=== PATIENT | female | born 1950 | race Caucasian/White ===

== ENCOUNTER → 2017-01-30 | Outpatient (CLI) | payer OTHER | LOC: MMPC 09:00 | PROVIDERS: ATTEND Nurse Practitioner Family | DX: Z78.0 Asymptomatic menopausal state (principal); I10 Essential (primary) hypertension; Z12.31 Encounter for screening mammogram for malignant neoplasm of breast | CPT/HCPCS: G0439; G0463 ==

== ENCOUNTER → 2017-02-02 | Outpatient (CLI) | payer OTHER ==
[2017-02-02 09:20] LABS: HEMATOCRIT 42.7 % (37.0-47.0); HEMOGLOBIN 14.4 g/dL (12.0-16.0); MEAN CORPUSCULAR HEMOGLOBIN 29.7 PG (27-31); MEAN CORPUSCULAR HGB CONC 33.7 g/dL (33-37); MEAN PLATELET VOLUME 10.7 FL (7.4-12.2); RED BLOOD COUNT 4.85 10^6/uL (4.20-5.40)
[2017-02-02 09:38] LABS: BLOOD UREA NITROGEN 17 mg/dL (7-22); BUN/CREATININE RATIO 21.25 (6-20); CALCIUM 9.6 mg/dL (8.7-10.7); CHOL/HDL RATIO 3.03 RATIO (0-4.0); EST GLOMERULAR FILTRATION > 60 (>60 ml/min/1.73m(2)); HDL CHOLESTEROL 65 mg/dL (40-150); SERUM ALBUMIN 4.2 g/dL (3.5-4.8); SERUM CHOLESTEROL 197 mg/dL (120-200)
== END ==
LOC: LAB 08:56
PROVIDERS: ATTEND Family Medicine
DX: I10 Essential (primary) hypertension (principal)
CPT/HCPCS: 36415; 80053; 80061; 84443; 85027

== ENCOUNTER → 2017-04-17 | Outpatient (CLI) | payer OTHER | LOC: MMPC 09:00 | PROVIDERS: ATTEND Family Medicine | DX: R04.0 Epistaxis (principal) | CPT/HCPCS: 99213; G0463 ==

== ENCOUNTER 2018-04-03 11:45 | Inpatient (IN) ==
--- NOTE | 2018-03-26 12:20 | CRNA.PROGR ---
Anesthesia Time - - Start date: 03/26/18 End date: 03/26/18 - Procedure/Recovery Time Anesthesia : Time In: 11:54 Anesthesia : Time Out: 12:15 Anesthesia : Total Time: 21 - Total Anesthesia Time Total Anesthesia Time (minutes): 21 - Other Weight: 87.543 kg Height: 5 ft 4 in Body Mass Index (BMI): 33.1 Physical Status: P2 Anesthesia Type: MAC (with sedation)
--- NOTE | 2018-03-26 12:21 | CRNA.PROGR ---
Post Anesthesia Phase II - Post Anesthesia Phase II Patient Stable and Discharged To: Phase II Care Assumed By Surgeon: Dewayne Covington MD Temperature: 96.6 F Pulse Rate: 94 Respiratory Rate: 18 Blood Pressure: 115/94 Pulse Ox: 94 Total [place] Score at Discharge: 10 Post Anesthesia Discharge Criteria Met: Yes
[~2018-04-03 11:45] MED LIST: BUPivacaine Liposome/PF (Exparel) Inj 20ml vial INFIL ONE; Ketorolac Inj 30 MG, Morphine Inj 5 MG, BUPivacaine Inj 0.25% PF 150 MG SPLASH ONE; LIDOCAINE W/ SODIUM BICARB 0.5 ML SYR SUBD ONE; Lactated Ringers 1,000 ML PRIMARY IV SCH; Tranexamic Acid 1,000 MG in Sodium Chloride 0.9% 100 ML IV SCH; ceFAZolin Inj 2gm (Premix) 2 GM/50 ML BAG IV ONE
[2018-06-12] MEDS ORDERED: Lactated Ringers 1,000 ML PRIMARY IV ONE ×2 (05:59→11:02)
[2018-06-12] MEDS ORDERED: LIDOCAINE W/ SODIUM BICARB 0.5 ML SYR ONE (05:59)
[2018-06-12] MEDS ORDERED: ceFAZolin Inj 2gm (Premix) 2 GM/50 ML BAG IV ONE ×2 (05:59→06:00)
[2018-06-12] MEDS ORDERED: BUPivacaine Liposome/PF (Exparel) Inj 20ml vial INFIL ONE ×2 (06:00→06:39)
[2018-06-12] MEDS ORDERED: Ketorolac Inj 30 MG, Morphine Inj 5 MG, BUPivacaine Inj 0.25% PF 150 MG SPLASH ONE ×3 (06:00)
[2018-06-12] MEDS ORDERED: Lactated Ringers 1,000 ML PRIMARY IV SCH (06:00)
[2018-06-12] MEDS ORDERED: Tranexamic Acid 3,000 MG in Sodium Chloride 0.9% 100 ML IRRIG ONE (06:00)
[2018-06-12] MEDS ORDERED: LIDOCAINE W/ SODIUM BICARB 0.5 ML SYR SUBD ONE (06:00)
[2018-06-12] MEDS ORDERED: Sodium Chloride 0.9% vial 40 ML ONE (06:38)
[2018-06-12] MEDS ORDERED: BACITRACIN 50,000 UNIT VIAL IRRIG ONE (06:39)
[2018-06-12] MEDS ORDERED: PROPOFOL 10 MG/1 ML (200 MG/20 ML) VIAL IV ONE ×2 (07:05→09:42)
[2018-06-12] MEDS ORDERED: LIDOCAINE 2%/ EPI 1:200,000 - 20 ML VIAL ONE (07:17)
[2018-06-12] MEDS ORDERED: BUPivacaine Inj 0.5% PF (5mg/ml) 30ml vial ONE (07:18)
[2018-06-12] MEDS ORDERED: MIDAZOLAM 5 MG/1 ML ONE (07:18)
[2018-06-12] MEDS ORDERED: fentaNYL Inj 100 MCG/2 ML VIAL ONE ×2 (07:18→07:42)
[2018-06-12] MEDS ORDERED: Sodium Chloride 0.9% 1,000 ML ONE (07:43)
[2018-06-12] MEDS ORDERED: Sodium Chloride 0.9% 250 ML IV ONE (07:43)
[2018-06-12] MEDS ORDERED: Tranexamic Acid 1,000 MG in Sodium Chloride 0.9% 100 ML IV SCH (08:00)
--- NOTE | 2018-06-12 08:51 | CRNA.PROCE ---
Nerve Block Documentation - - Safety Measures: Time Out Taken - - Type of Nerve Block Used: Right Adductor Canal Nerve Block Position for Nerve Block: Supine Moniters Used During Block: EKG, SPO2, NIBP Oxygen Supplemented: Yes Sedation Used - Enter Amount in Comment Field [ANES.SEDAT]: Midazolam (mg): Yes (2mg), Fentanyl (mcg): Yes (100mcg) Skin Prep Used: ChloroPrep Technique: Nerve Stimulator (and US) Nerve Block Needle Used: PaxVax 100 mm Stimulation Hz: 2 Stimulation Staring mA: 1.2 Stimulation Ending mA: 0.4 Local Anesthetic - Enter Amt in Comment Field [ANES.LOCNB]: 0.5 % Bupivacaine Plain (mL): Yes (20ml), 2 % Xylocaine with Epinephrine 1:200,000 (mL): Yes (20ml ) Additives to Nerve Blocks: Dexamethasone (mg): Yes (8mg(2ml)) - - PreOp Block : Time In: 07:20 PreOp Block : Time Out: 07:37 Anesthesia Time - Other Weight: 87.543 kg Height: 5 ft 4 in Body Mass Index (BMI): 33.1
--- NOTE | 2018-06-12 08:52 | CRNA.PROCE ---
Central Neuraxis Block [facility] - - Safety Measures: Time Out Taken - - Type of Block: Subarachnoid Reason for Block: Surgical Moniters Used During Block: EKG, SPO2, NIBP Sedation Used - Enter Amount Used in Comment Field: Midazolam (mg): Yes (1mg) Skin Prep Used: ChloroPrep Spinal Needle Used: 25 Jes 80 mm Local Anesthetic - Enter Amount Used in Comment Field: 0.75 % Bupivacaine with Dextrose (ml): Yes (15mg) Additive Used - Enter Amount Used in Comment Field: Fentanyl (mcg): Yes (15mcg) Bioclusive Dressing Applied: No Anesthesia Time - Block Time PreOp Block : Time In: 07:20 PreOp Block : Time Out: 07:37 - Other Weight: 87.543 kg Height: 5 ft 4 in Body Mass Index (BMI): 33.1
[2018-06-12] MEDS ORDERED: Lactated Ringers 2,000 ML PRIMARY IV ONE (09:42)
[2018-06-12] MEDS ORDERED: LIDOCAINE W/ SODIUM BICARB 0.5 ML SYR SUBD PRN (10:20)
[2018-06-12] MEDS ORDERED: ONDANSETRON 4 MG/2 ML VIAL IVP PRN ×2 (10:20→13:01)
[2018-06-12] MEDS ORDERED: HYDROmorphone 2 MG/1 ML IVP PRN (10:20)
[2018-06-12] MEDS ORDERED: BUTORPHANOL TARTRATE 2 MG/1 ML VIAL IVP PRN (10:20)
--- NOTE | 2018-06-12 11:53 | ORTHO.OP ---
- - -: See Dictated Operative Report Procedure Codes - Lower Extremity/Knee Procedures Primary Lower Extremity Procedure Code: 96134 : TKA (Wen Padilla assisted)
--- NOTE | 2018-06-12 12:22 | CRNA.PROGR ---
Anesthesia Time - - Start date: 06/12/18 End date: 06/12/18 - Procedure/Recovery Time Anesthesia : Time In: 08:04 Anesthesia : Time Out: 12:14 Anesthesia : Total Time: 250 - Block Time PreOp Block : Time In: 07:20 PreOp Block : Time Out: 07:37 PreOp Block : Total Time: 17 - Total Anesthesia Time Total Anesthesia Time (minutes): 267 - Other Weight: 87.543 kg Height: 5 ft 4 in Body Mass Index (BMI): 33.1 Physical Status: P2 Anesthesia Type: Spinal Block
--- NOTE | 2018-06-12 12:25 | CRNA.PROGR ---
Anesthesia Recovery Phase I - Post Anesthesia Evaluation Patient's Condition on Arrival in Phase I: Stable Patient's Condition on Arrival in Phase II: Stable Pain Level: 0
[2018-06-12] MEDS ORDERED: diphenhydrAMINE 25 MG CAPSULE PO PRN (13:01)
[2018-06-12] MEDS ORDERED: MAG HYDROX/AL HYDROX/SIMETH 30 ML SUSP PO PRN (13:01)
[2018-06-12] MEDS ORDERED: BISACODYL 5 MG TABLET PO PRN (13:01)
[2018-06-12] MEDS ORDERED: CALCIUM CARBONATE 500 MG (TUMS) CHEWABLE TABLET PO PRN (13:01)
[2018-06-12] MEDS ORDERED: Prochlorperazine Tab 10 MG TAB PO PRN (13:01)
[2018-06-12] MEDS ORDERED: LIDOCAINE HCL 2 % 10 ML JELLY URO-JECT TOPICAL PRN (13:01)
[2018-06-12] MEDS ORDERED: ACETAMINOPHEN 325 MG TABLET PO PRN (13:01)
[2018-06-12] MEDS ORDERED: BISACODYL 10 MG SUPPOSITORY RECTAL PRN (13:01)
[2018-06-12] MEDS ORDERED: Ondansetron ODT Tab 8 MG TAB PO PRN (13:01)
[2018-06-12] MEDS ORDERED: METOPROLOL SUCCINATE 25 MG SR 24H TABLET PO SCH (13:01)
[2018-06-12] MEDS ORDERED: Triamterene/HCTZ 75/50 Tab 1 TAB TAB PO SCH (13:15)
[2018-06-12] MEDS: Lactated Ringers 1,000 ML PRIMARY IV SCH (13:59)
--- NOTE | 2018-06-12 14:07 | CONSULT ---
Consult Note - Consult Consult Date: 06/12/18 Reason for Consult: PostOp Consulation : Ortho Requesting Physician: Dr. Durham Primary Care Provider: Bran Gregg MD - History of Present Illness History of Present Illness: This is a 68 years old female with medical history significant for history of hypertension, history of previous right knee surgery before who came into the hospital to have right total knee replacement and was done by Dr. Durham. The hospitalist service were consulted for management of medical issues. Currently she is sleepy and feels tired but otherwise denying other symptoms there's no chest pain no shortness of breath no nausea and no knee pain. She did not take any of her medications today. Past Medical History Medical History: 1. Hypertension. 2. Recent UTI. 3. History of arthritis right knee. 4. History of abnormal stress test, had cardiac cath in [facility] and was negative per her family. 5. History of adenomatous polyps with low-grade dysplasia in October 2014 repeat colonoscopy this year was negative Surgical History: 1. History of previous knee surgery before Family History: Reviewed an Not Pertinent Past Social History: Does not smoke, rarely drinks no drugs. Tobacco Use: Never Smoker In the Past 12 Months, Have Used or Abuse Any of the Following Substance: None Alcohol Use: Rarely Review of Systems - Review of Systems All Systems: Reviewed & No Additional Complaints Except as Stated Medication / Allergies Home Medications: Home Medications 3 Medication Instructions Recorded Confirmed Type Lo-Dose Aspirin Ec 81 mg ORAL QD tab 12/16/11 06/12/18 History Potassium Bicarbonate/Cit AC 1 tab PO QD tab 12/28/15 06/12/18 History [Potassium 25 Meq Tablet Eff] Lisinopril 1 tab PO QD #90 tab 02/08/17 [facility] 1 tab PO DAILY 11/10/17 06/12/18 History tablet amlodipine 5 mg tablet 5 mg PO DAILY #90 tab 03/13/18 06/12/18 Rx lisinopril 40 mg tablet 40 mg PO QDAY #90 tab 03/13/18 06/12/18 Rx metoprolol succinate ER 25 mg 25 mg PO QD #90 tab 03/13/18 06/12/18 Rx tablet,extended release 24 hr triamterene 37.5 1 cap PO QD #90 cap 03/13/18 06/12/18 Rx mg-hydrochlorothiazide 25 mg capsule nitrofurantoin 100 mg PO BID #14 cap 06/08/18 06/12/18 Rx monohydrate/macrocrystals 100 mg capsule Allergies/Adverse Reactions: Allergies 3 Allergy/AdvReac Type Severity Reaction Status Date / Time No Known Allergies Allergy Verified 06/12/18 13:59 Exam - Vitals Vital Signs: Vital Signs Temperature 97.4 F Pulse Rate 46 Respiratory Rate 12 Blood Pressure 78/49 Pulse Ox 86 Oxygen Flow Rate 2L by NC Height 5 ft 4 in Weight 193 lb - General General Appearance: No Acute Distress, Cooperative - Head Head Exam: Normal Inspection - Eye Eye Exam: POSITIVE: Normal Appearance - ENT ENT Exam: POSITIVE: Normal Exam - Neck Neck Exam: Normal Inspection - Respiratory Respiratory Exam: POSITIVE: Clear to Auscultation - Bilaterally - Cardiovascular Cardiovascular Exam: POSITIVE: RRR - GI/Abdominal GI/Abdominal Exam: POSITIVE: Normal Bowel Sounds, Non Tender, Non Distended, Soft, No Organomegaly - Rectal Rectal Exam: POSITIVE: Deferred - External Exam: POSITIVE: Deferred Exam: POSITIVE: Deferred - Extremities Additional Extremities Exam Details: Dressing applied to right knee. - Neurological Neurological Exam: POSITIVE: Oriented x 3, CN II-XII Intact, No Facial Droop, Speech Intact / Clear Additional Neurological Exam Details: Sleepy but arousable Assessment and Plan - Patient Problems (1) Status post right knee replacement Current Visit: Yes Status: Acute Comment: PT and OT were consulted. For DVT prophylaxis Dr. Durham put her on Lovenox. Code(s): Z96.651 - Presence of right artificial knee joint (2) UTI (urinary tract infection) Current Visit: No Status: Acute Comment: She was diagnosed with urinary Tract infection recently continue Macrodantin Code(s): N39.0 - Urinary tract infection, site not specified Qualifiers: Urinary tract infection type: site unspecified Hematuria presence: without hematuria Qualified Code(s): N39.0 - Urinary tract infection, site not specified (3) Hypertension Current Visit: Yes Status: Acute Comment: Will watch her blood pressure and Continue previous medications for now. Code(s): I10 - Essential (primary) hypertension
[2018-06-12] MEDS ORDERED: NITROFURANTOIN/NITROFURAN MAC 100 MG CAPSULE PO SCH ×2 (14:45→21:00)
[2018-06-12] MEDS: HYDROcodone-APAP 7.5 MG-325 MG TABLET PO PRN ×2 (16:03→20:18)
[2018-06-12] MEDS: ceFAZolin Inj 2gm (Premix) 2 GM/50 ML BAG IV SCH ×2 (16:06→23:12)
[2018-06-12] MEDS: HYDROmorphone 2 MG/1 ML IVP PRN (18:44)
[2018-06-12] MEDS: NITROFURANTOIN 100 MG PO SCH (20:17)
[2018-06-12] MEDS: DOCUSATE 100 MG CAPSULE PO SCH (20:18)
[2018-06-13] MEDS: HYDROcodone-APAP 7.5 MG-325 MG TABLET PO PRN ×6 (00:38→21:09)
[2018-06-13 06:05] LABS: Hematocrit [HCT] 32.9 % (37.0-47.0); Hemoglobin [HGB] 10.8 g/dL (12.0-16.0); MEAN CORPUSCULAR HEMOGLOBIN 29.8 PG (27-31); MEAN CORPUSCULAR HGB CONC 32.8 g/dL (33-37); MEAN CORPUSCULAR VOLUME 90.9 FL (81-99); MEAN PLATELET VOLUME 11.4 FL (7.4-12.2); RED BLOOD COUNT 3.62 10^6/uL (4.20-5.40)
[2018-06-13 06:36] LABS: BLOOD UREA NITROGEN 21 mg/dL (7-22); BUN/CREATININE RATIO 23.33 (6-20)
--- NOTE | 2018-06-13 07:47 | ORTHO.PROG ---
Last Taken Vital Signs: Vital Signs - Last Taken Temperature 96.6 F L 06/13/18 07:16 Pulse Rate 53 L 06/13/18 07:16 Respiratory Rate 16 06/13/18 07:16 Blood Pressure 119/64 06/13/18 07:16 Pulse Ox 96 06/13/18 07:16 Subjective: Patient doing well this morning pain well-controlled Objective: Dressings in place mild amount of swelling some early ecchymosis motor and sensory exam nonfocal or thigh pain. Laboratory Results 06/13/18 06/13/18 Range/Units 05:00 05:15 WBC 9.02 (4.8-10.8) 10^3/uL RBC 3.62 L (4.20-5.40) 10^6/uL Hgb 10.8 L (12.0-16.0) g/dL Hct 32.9 L (37.0-47.0) % MCV 90.9 (81-99) FL MCH 29.8 (27-31) PG MCHC 32.8 L (33-37) g/dL RDW Std Deviation 45.0 (39-50) fL RDW Coeff of Trever 14.0 (11.5-14.5) % Plt Count 190 (140-350) 10*3/uL MPV 11.4 (7.4-12.2) FL Sodium 137 D (135-145) meq/L Potassium 4.0 (3.8-5.2) meq/L Chloride 102 (98-112) meq/L Carbon Dioxide 26 (23-33) meq/L Anion Gap 9 (5-20) BUN 21 (7-22) mg/dL Creatinine 0.9 (0.50-1.20) mg/dL Estimated GFR > 60 (>60 ml/min/1.73m(2)) BUN/Creatinine Ratio 23.33 H (6-20) Glucose 112 H (78-110) mg/dL Calculated Osmolality 287.0 (267-292) mOsm/kg Calcium 8.6 L (8.7-10.7) mg/dL Intake and Output - 8hrs 06/12/18 06/12/18 06/13/18 06/13/18 13:59 21:59 05:59 13:59 Intake: IV 3600 / 3600 Intake Oral Amount 0 / 0 500 / 500 450 / 450 Output: Output, Drainage Amount 0 / 0 R knee 0 / 0 Output, Urinary Catheter Amount 10 / 10 300 / 300 200 / 200 Output, Urine Amount 150 / 150 Output, Post Indwelling 50 / 50 Catheter Insertion Output, Estimated Blood Loss 400 / 400 Amount Other: Percent Meal Consumed Dinner 100% Drains R knee Negative Pressure Drain Weight 87.543 kg Vital Signs (24 hrs) Temp Pulse Pulse Pulse Resp BP BP 06/13/18 07:16 96.6 F L 53 L 16 119/64 06/13/18 05:10 06/13/18 04:58 96.9 F 55 L 16 125/73 06/12/18 23:46 97.3 F 53 L 16 113/63 06/12/18 18:44 97.5 F 51 L 18 146/93 06/12/18 16:00 97.9 F 51 L 16 06/12/18 14:55 96.5 F L 51 L 16 06/12/18 14:25 96.7 F L 47 L 16 06/12/18 13:55 97 F 47 L 14 06/12/18 13:40 96.8 F 48 L 14 06/12/18 13:10 96.7 F L 48 L 12 06/12/18 13:02 96.8 F 49 L 14 06/12/18 12:56 96.8 F 44 L 15 121/68 06/12/18 12:46 44 L 16 109/62 06/12/18 12:36 47 L 17 94/59 06/12/18 12:34 46 L 06/12/18 12:26 43 L 11 L 86/50 06/12/18 12:21 49 L 8 L 83/53 06/12/18 12:10 97.4 F 46 L 12 80/45 BP Pulse Ox 06/13/18 07:16 96 06/13/18 05:10 92 06/13/18 04:58 96 06/12/18 23:46 94 06/12/18 18:44 97 06/12/18 16:00 122/65 98 06/12/18 14:55 130/77 98 06/12/18 14:25 130/85 98 06/12/18 13:55 130/69 98 06/12/18 13:40 120/71 98 06/12/18 13:10 131/70 98 06/12/18 13:02 131/70 06/12/18 12:56 98 06/12/18 12:46 95 06/12/18 12:36 93 06/12/18 12:34 06/12/18 12:26 92 06/12/18 12:21 93 06/12/18 12:10 93 Assessment: Status post total knee replacement on right doing well Plan: Pain control with oral and IV medication DVT prophylaxis with pneumatic sequentials and Lovenox 30 mg twice a day Mobilize with physical therapy. Patient has an abductor block I would certainly be cautious about should be okay to bear some weight on this with the knee immobilizer.
[2018-06-13] MEDS: Lactated Ringers 1,000 ML PRIMARY IV SCH ×2 (08:26→10:37)
[2018-06-13] MEDS ORDERED: METOPROLOL SUCCINATE 25 MG SR 24H TABLET PO SCH (09:00)
[2018-06-13] MEDS ORDERED: LISINOPRIL 20 MG TABLET PO SCH (09:00)
[2018-06-13] MEDS ORDERED: Triamterene/HCTZ 75/50 Tab 1 TAB TAB PO SCH (09:00)
[2018-06-13] MEDS: ASPIRIN EC 81 MG TABLET PO SCH (09:22)
[2018-06-13] MEDS: ENOXAPARIN SODIUM 30 MG/0.3 ML SYRINGE SUBCUT SCH ×2 (09:22→21:09)
[2018-06-13] MEDS: AmLODIPine Tab 5 MG TABLET PO SCH (09:23)
[2018-06-13] MEDS: Multivitamin Tab 1 TAB PO SCH (09:23)
[2018-06-13] MEDS: DOCUSATE 100 MG CAPSULE PO SCH ×2 (09:23→21:09)
[2018-06-13] MEDS: NITROFURANTOIN 100 MG PO SCH ×2 (09:28→21:09)
--- NOTE | 2018-06-13 09:54 | PDOC(PROG) ---
Date and Time of Service: 06/13/2018 9:57 AM Interval History: Subjective Pain seemed to be controlled this morning. Denying other symptoms. No chest pain, no shortness of breath no nausea. She said she stood up with physical therapy yesterday. We'll go down later on today for PT. Objective : Data - Labs CBC and BMP: 06/13/18 05:15 06/13/18 05:00 Objective : Exam - General General Appearance: No Acute Distress, Cooperative - Head Head Exam: Normal Inspection - Eye Eye Exam: Normal Appearance - ENT ENT Exam: Normal Exam - Neck Neck Exam: Normal Inspection - Respiratory Respiratory Exam: Clear to Auscultation - Bilaterally - Cardiovascular Cardiovascular Exam: RRR - GI/Abdominal GI/Abdominal Exam: Normal Bowel Sounds, Non Tender, Non Distended, Soft, No Organomegaly - Rectal Rectal Exam: Deferred - External Exam: Deferred Exam: Deferred - Extremities Additional Extremities Exam Details: Dressing applied to the right knee. - Back Back Exam: Normal Inspection - Neurological Neurological Exam: Alert, Oriented x 3, CN II-XII Intact, No Facial Droop, Speech Intact / Clear, Moves All Extremities Equally - Psychiatric Psychiatric Exam: Normal Affect Assessment and Plan - Patient Problems (1) Status post right knee replacement Current Visit: Yes Status: Acute Comment: Continue PT and OT. For DVT prophylaxis she is on Lovenox. Code(s): Z96.651 - Presence of right artificial knee joint (2) UTI (urinary tract infection) Current Visit: No Status: Acute Comment: Continue her course of antibiotics. Code(s): N39.0 - Urinary tract infection, site not specified Qualifiers: Urinary tract infection type: site unspecified Hematuria presence: without hematuria Qualified Code(s): N39.0 - Urinary tract infection, site not specified (3) Hypertension Current Visit: Yes Status: Acute Comment: Blood pressure seem to be acceptable I think we'll hold her lisinopril and the diuretics. Will continue with the metoprolol and amlodipine for now. She did say that her physician was thinking about switching her medication but didn't want to do it before the surgery. If her blood pressure remains acceptable will continue without lisinopril and the diuretic. Code(s): I10 - Essential (primary) hypertension (4) Postoperative anemia due to acute blood loss Current Visit: Yes Status: Acute Comment: Her anemia is mild she will have another repeat tomorrow Code(s): D62 - Acute posthemorrhagic anemia
--- NOTE | 2018-06-13 10:24 | PTI REPORT ---
Thank you for the referral of Pam Cheek. She was seen on 06/12/18 for an inpatient evaluation status post right total knee arthroplasty. SUBJECTIVE: The patient is a 68-year-old female. The patient reports at this time she is having very little feeling in that right lower extremity but is wanting to get up. PAST MEDICAL HISTORY: Past medical history can be found in the patient's medical record. OBJECTIVE FINDINGS: Pain: The patient reported a pain level initially of 1/10 on the verbal analog scale (0=no pain, 10=worst pain); however, this increased to a 7/10 with movement in therapy. Bed mobility: The patient required mod assist x1 specifically for the right lower extremity to transfer from supine to edge of bed. Transfers: The patient was able to perform a sit to stand transfer weight- bearing as tolerated with use of a knee immobilizer on the right lower extremity due to the patient having minimal control of the right lower extremity quadriceps muscle. Incision: The patient's incision was unable to be inspected due to the surgical bandage put in place. Edema: The patient has Grade III edema throughout that right lower extremity. Strength/Range of motion: Strength and range of motion were not able to be formally assessed due to having surgery earlier today, but the patient does demonstrate the ability to move her toes, foot, and ankle. The patient is unable to perform an independent straight leg raise. Ambulation: Ambulation was not attempted at this time. ASSESSMENT: Problem List: Pain in the right knee Decreased passive and active range of motion in the right knee Decreased strength in the right knee Short-Term Goals: To be met by discharge from inpatient: Patient will be able to transfer from bed to stand independently. Patient will be able to ambulate 100 feet with walker, weight-bearing as tolerated. Patient will be able to ascend and descend 5 stairs with walker, weight-bearing as tolerated. Long-Term Goals: To be met following discharge from inpatient: Patient will be seen by outpatient physical therapy. TREATMENT PLAN: Patient will be seen B.I.D during the week and one time per day over the weekend as an inpatient to address the above goals and objectives. INITIAL TREATMENT: Treatment today consisted of the initial evaluation followed by issuing the patient a standard walker as well as a knee immobilizer and a cryo cuff. The patient transferred from supine in bed to edge of bed with moderate assistance x1, specifically for the right lower extremity as well as standing in the walker only with the knee brace with weight-bearing as tolerated. Ambulatory activities were not attempted at this time due to lightheadedness. The patient was able to sit edge of bed unsupported x5 minutes before requiring max assist x2 for edge of bed to supine transfer. The patient was educated on keeping her knee in an extended position and keeping ice on the surgical area. We will progress with ambulatory activities tomorrow. ELISE
[2018-06-13] MEDS: HYDROmorphone 2 MG/1 ML IVP PRN ×2 (11:05→22:38)
--- NOTE | 2018-06-13 16:22 | OT.PROG ---
Progress Note Progress Note: Occupational Therapy S: Pt. reports that she is feeling a little better now, but still not great. She agreed to participate in OT session. O: Pt. completed the following UE therapeutic exercise while seated in recliner chair: biceps curls, horizontal abduction, shoulder extension, triceps extension , and shoulder flexion X 15 each. A: Pt. tolerated treatment well. She may benefit from additional work on ADL skills. P: Continue POC. STEPHANIE Gama/Jo-Ann
--- NOTE | 2018-06-13 16:35 | PT.PROG ---
Progress Note Progress Note: S. Patient stated that she is not feeling well this morning, she states that she is feeling nauseous. O. Patient ambulated 8 feet to the wheelchair and was returned to the chair where she performed exercises in the form of; heel slides, quad sets, ankle pumps, all x10. Patient was left in chair with alarm and call light. A. Patient tolerated therapy poor this morning, she was unable to perform more exercises due to nausea and becoming ill after ambulating. Patient would continue to benefit from skilled therapy at this time. P. Continue POC.
--- NOTE | 2018-06-13 16:55 | PT.PROG ---
Progress Note Progress Note: S. Patient stated that she is still not feeling great this afternoon. O. Patient performed seated heel slides, quad sets, glute sets, ankle pumps, then transferred 5 feet to bed where she transferred to supine and was left with alarm and call light. A. Patient continues was unable to perform all exercises due to not feeling well after being sick again after lunch. She would continue to benefit from skilled therapy to increase strength and mobility. P. Continue POC.
--- NOTE | 2018-06-13 16:58 | OTI REPORT ---
Thank you for the referral of Pam Cheek. She was seen on 06/13/18 for an occupational therapy inpatient evaluation status post right total knee arthroplasty. SUBJECTIVE: The patient is a 68-year-old female who is being seen secondary to having a total knee arthroplasty on the right side. PAST MEDICAL HISTORY: Past medical history can be found in the patient's medical record. OBJECTIVE FINDINGS: Bed mobility: Today the patient needed max assist to transfer from supine to sitting edge of bed to move right lower extremity but was able to move left upper extremity independently. While sitting edge of bed the patient was educated in her knee precautions. Activities of daily living: Today the patient was able to don shorts with education to start with the right leg. The patient was also able to don socks with stand by assistance. Once standing, the patient was dependent with getting shorts from thigh to waist level secondary to decreased balance. Transfers: The patient required min assist to transfer from sit to stand. Range of motion: Upper extremity range of motion was within normal limits. Strength: Strength for shoulder flexion was 3+/5 and abduction was 4/5. ASSESSMENT: The patient will benefit from at least one more session to make sure that her balance is good for dressing self upon returning home. Problem List: Decreased ability to perform ADLs Decreased ability to perform functional transfers Decreased Short-Term Goals: To be met by discharge from inpatient: Patient will be able to [] Patient will be able to [] Patient will be able to [] Patient will be able to [] Long-Term Goals: To be met following discharge from inpatient: Patient will be able to [] Patient will be able to [] TREATMENT PLAN: Patient will be seen B.I.D during the week and one time per day over the weekend as an inpatient to address the above goals and objectives. INITIAL TREATMENT: Treatment today consisted of the initial evaluation followed by The patient became lightheaded and nauseous MTDD
--- NOTE | 2018-06-13 17:08 | ORTHO.PROG ---
Last Taken Vital Signs: Vital Signs - Last Taken Temperature 97.4 F 06/13/18 17:00 Pulse Rate 49 L 06/13/18 17:00 Respiratory Rate 16 06/13/18 17:00 Blood Pressure 130/74 06/13/18 17:00 Pulse Ox 95 06/13/18 17:00 Subjective: Patient notes her pain is reasonably controlled on the oral pain medication. Had to use IV medication once this afternoon. Patient had some lightheadedness and nausea while mobilizing earlier and while sitting in the chair. Objective: Examination shows that the patient's dressing is in place. She has a very mild amount of swelling no distal swelling or edema. No calf or thigh pain. Vital Signs (24 hrs) Temp Pulse Resp BP BP Pulse Ox 06/13/18 17:00 97.4 F 49 L 16 130/74 95 06/13/18 12:13 96.3 F L 44 L 14 125/66 98 06/13/18 07:16 96.6 F L 53 L 16 119/64 96 06/13/18 07:00 14 06/13/18 05:10 92 06/13/18 04:58 96.9 F 55 L 16 125/73 96 06/12/18 23:46 97.3 F 53 L 16 113/63 94 06/12/18 18:44 97.5 F 51 L 18 146/93 97 Assessment: Right total knee replacement Plan: Continue with physical therapy and occupational therapy, pain control seems to be good on the current medication. Continue with DVT prophylaxis.
[2018-06-14] MEDS: HYDROcodone-APAP 7.5 MG-325 MG TABLET PO PRN ×5 (03:49→20:57)
[2018-06-14 05:56] LABS: Hematocrit [HCT] 30.5 % (37.0-47.0); Hemoglobin [HGB] 9.9 g/dL (12.0-16.0); MEAN CORPUSCULAR HEMOGLOBIN 30.2 PG (27-31); MEAN CORPUSCULAR HGB CONC 32.5 g/dL (33-37); MEAN PLATELET VOLUME 11.7 FL (7.4-12.2); RED BLOOD COUNT 3.28 10^6/uL (4.20-5.40)
[2018-06-14 06:06] LABS: BLOOD UREA NITROGEN 18 mg/dL (7-22)
[2018-06-14] MEDS: ENOXAPARIN SODIUM 30 MG/0.3 ML SYRINGE SUBCUT SCH ×2 (08:03→20:57)
[2018-06-14] MEDS: NITROFURANTOIN 100 MG PO SCH ×2 (08:03→20:58)
[2018-06-14] MEDS: AmLODIPine Tab 5 MG TABLET PO SCH (08:03)
[2018-06-14] MEDS: Multivitamin Tab 1 TAB PO SCH (08:03)
[2018-06-14] MEDS: ASPIRIN EC 81 MG TABLET PO SCH (08:04)
[2018-06-14] MEDS: DOCUSATE 100 MG CAPSULE PO SCH ×2 (08:04→20:57)
[2018-06-14] MEDS: METOPROLOL SUCCINATE 25 MG SR 24H TABLET PO SCH (08:04)
--- NOTE | 2018-06-14 08:47 | ORTHO.PROG ---
Last Taken Vital Signs: Vital Signs - Last Taken Temperature 97.7 F 06/14/18 06:52 Pulse Rate 58 L 06/14/18 06:52 Respiratory Rate 17 06/14/18 06:52 Blood Pressure 123/70 06/14/18 06:52 Pulse Ox 95 06/14/18 06:52 Subjective: Patient feels she is doing pretty well this morning pain is reasonably well controlled. Objective: Examination leg shows she has a mild amount of swelling no increased swelling on the right versus left. She has no calf or thigh pain. Motor and sensory exam is nonfocal. Her negative suction dressing is in place with no active issues Laboratory Results 06/14/18 06/14/18 Range/Units 05:10 05:10 WBC 6.58 (4.8-10.8) 10^3/uL RBC 3.28 L (4.20-5.40) 10^6/uL Hgb 9.9 L (12.0-16.0) g/dL Hct 30.5 L (37.0-47.0) % MCV 93.0 (81-99) FL MCH 30.2 (27-31) PG MCHC 32.5 L (33-37) g/dL RDW Std Deviation 46.5 (39-50) fL RDW Coeff of Trever 14.1 (11.5-14.5) % Plt Count 151 (140-350) 10*3/uL MPV 11.7 (7.4-12.2) FL Sodium 138 (135-145) meq/L Potassium 3.8 (3.8-5.2) meq/L Chloride 103 (98-112) meq/L Carbon Dioxide 30 (23-33) meq/L Anion Gap 5 (5-20) BUN 18 (7-22) mg/dL Creatinine 0.8 (0.50-1.20) mg/dL Estimated GFR > 60 (>60 ml/min/1.73m(2)) BUN/Creatinine Ratio 22.50 H (6-20) Glucose 88 (78-110) mg/dL Calculated Osmolality 286.0 (267-292) mOsm/kg Calcium 8.6 L (8.7-10.7) mg/dL Vital Signs (24 hrs) Temp Pulse Resp BP BP Pulse Ox 06/14/18 06:52 97.7 F 58 L 17 123/70 95 08/09/18 05:25 94 06/14/18 03:59 97.5 F 54 L 18 116/60 95 06/14/18 00:01 97.5 F 54 L 16 121/58 91 06/13/18 19:51 97.6 F 55 L 20 137/75 94 06/13/18 19:00 16 06/13/18 17:00 97.4 F 49 L 16 130/74 95 06/13/18 12:13 96.3 F L 44 L 14 125/66 98 Intake and Output - 8hrs 06/13/18 06/13/18 06/14/18 06/14/18 13:59 21:59 05:59 13:59 Intake: IV 380 / 380 Intake Oral Amount 200 / 200 480 / 480 400 / 400 220 / 220 Breakfast 200 / 200 120 / 120 Output: Output, Urinary Catheter Amount 600 / 600 600 / 600 Other: Percent Meal Consumed Breakfast 75% 25% Dinner 100% Lunch 25% Weight 88.677 kg 88.088 kg Weight Measurement Method Standing Scale Standing Scale Assessment: Right total knee replacement doing well Postop anemia Plan: Patient will continue with previous plan of physical therapy and occupational therapy, patient will also continue with DVT prophylaxis with Lovenox and pneumatic sequential devices and pain control slowly weaning to just oral medications.
--- NOTE | 2018-06-14 10:26 | PDOC(PROG) ---
Date of Service: 06/14/18 Time of Service: 10:30 Interval History: Subjective Patient is complaining from pain in the right knee. She just finished physical therapy and is having more pain. Yesterday she did vomit as she got up from the bed to physical therapy. Today she said she felt a little bit lightheaded but no nausea or vomiting. Objective : Data - Labs CBC and BMP: 06/14/18 05:10 06/14/18 05:10 Objective : Exam - General General Appearance: No Acute Distress, Cooperative - Head Head Exam: Normal Inspection - Eye Eye Exam: Normal Appearance - ENT ENT Exam: Normal Exam - Neck Neck Exam: Normal Inspection - Respiratory Respiratory Exam: Clear to Auscultation - Bilaterally - Cardiovascular Cardiovascular Exam: RRR - GI/Abdominal GI/Abdominal Exam: Normal Bowel Sounds, Non Tender, Non Distended, Soft, No Organomegaly - Rectal Rectal Exam: Deferred - External Exam: Deferred Exam: Deferred - Extremities Additional Extremities Exam Details: Dressing applied to the right knee. SCD applied. - Neurological Neurological Exam: Alert, Oriented x 3, CN II-XII Intact, No Facial Droop, Speech Intact / Clear - Psychiatric Psychiatric Exam: Normal Affect Assessment and Plan - Patient Problems (1) Status post right knee replacement Current Visit: Yes Status: Acute Comment: Continue PT and OT. Continue current pain medications. For DVT prophylaxis she is on Lovenox Code(s): Z96.651 - Presence of right artificial knee joint (2) UTI (urinary tract infection) Current Visit: No Status: Acute Comment: She is on Macrodantin will stop it tomorrow. Code(s): N39.0 - Urinary tract infection, site not specified Qualifiers: Urinary tract infection type: site unspecified Hematuria presence: without hematuria Qualified Code(s): N39.0 - Urinary tract infection, site not specified (3) Hypertension Current Visit: Yes Status: Acute Comment: Blood pressure is acceptable I have held her diuretic and lisinopril. I cut back today on the metoprolol to 12.5 from 25 mg as her heart rate at times went to the 40s. Continue amlodipine. I did tell her I am not sure whthere she needs to be on all these blood pressure medications. She did say that her primary was thinking about switching her blood pressure medications. Code(s): I10 - Essential (primary) hypertension (4) Postoperative anemia due to acute blood loss Current Visit: Yes Status: Acute Comment: Has some mild anemia she'll have another repeat tomorrow Code(s): D62 - Acute posthemorrhagic anemia
[2018-06-14] MEDS: HYDROmorphone 2 MG/1 ML IVP PRN (10:30)
--- NOTE | 2018-06-14 12:17 | PT.PROG ---
Progress Note Progress Note: S. Patient stated that she is having some pain this morning, however is feeling much better than yesterday. O. Patient ambulated 15 feet to the wheelchair and was wheeled to the therapy gym where she had heat to her knee then performed exercises in the form of; heel slides, quad sets, ankle pumps, and short arc quads all x 10, seated knee flexion 5x10 second holds, Patient then performed sit to stands x 5 then ambulated 40 feet back to the wheelchair and was wheeled to her room where was left in bed with alarm and call light. A. Patient tolerated exercises fair, she is struggling with knee flexion, Patient would continue to benefit from skilled therapy to increase strength and mobility, Patient could benefit from CPM to increase patient's movement when not in therapy. P. Continue POC.
[2018-06-14] MEDS: CITRATE PO SCH (13:41)
[2018-06-14] MEDS: EFFER K PO SCH (13:41)
[2018-06-14] MEDS: POTASSIUM BICARBONATE PO SCH (13:41)
--- NOTE | 2018-06-14 16:19 | OT.PROG ---
Progress Note Progress Note: Occupational Therapy: S: pt stated she was doing well today and agreed to therapy. O: tx today consisted of bed mobility from supine to EOB with MIN A for LE mobility, functional ambulating with stander walker and CGA for safety x 45', toilet transfer,toileting tasks and hygiene independently, donning of LE socks and shorts independent. A: pt tolerated session well and is able to complete ADL tasks independently. P: due to reaching all functional goals, pt is discharged from skilled OT services
--- NOTE | 2018-06-14 17:22 | PT.PROG ---
Progress Note Progress Note: S. Patient stated that she is feeling much better this afternoon compared to this morning. O. Patient ambulated 15 feet to the wheelchair and was wheeled to the therapy gym where she had heat to her knee then performed exercises in the form of; heel slides, quad sets, ankle pumps, and short arc quads all x 10, seated knee flexion 10x10 second holds, Patient then performed sit to stands x 10 then ambulated 50 feet back to the wheelchair and was wheeled to her room where was left in bed with alarm and call light. A. Patient tolerated exercises fair, she is struggling with knee flexion, Patient continues to require mod assist with sit to supine transfers Patient required min assist with sit to stand transfers. Patient would continue to benefit from skilled therapy to increase strength and mobility. P. Continue POC.
--- NOTE | 2018-06-14 20:11 | DI ---
RIGHT KNEE KNEE, 06/12/2018 11:53 AM: Clinical History: Status post total knee replacement. Osteoarthritis. Previous Exam: 11/10/2017. AP and lateral views are submitted. The patient is status post total right knee replacement. The pros thetic joint articulates normally. There is a wound evacuation device placed anteriorly. Reading: Status post total right knee replacement. The prosthetic joint articulates normally.
[2018-06-15] MEDS: HYDROcodone-APAP 7.5 MG-325 MG TABLET PO PRN ×4 (01:55→19:59)
[2018-06-15 05:17] LABS: Hematocrit [HCT] 28.9 % (37.0-47.0); Hemoglobin [HGB] 9.7 g/dL (12.0-16.0); MEAN CORPUSCULAR HEMOGLOBIN 30.9 PG (27-31); MEAN CORPUSCULAR HGB CONC 33.6 g/dL (33-37); MEAN PLATELET VOLUME 11.6 FL (7.4-12.2); RED BLOOD COUNT 3.14 10^6/uL (4.20-5.40)
[2018-06-15 05:26] LABS: BLOOD UREA NITROGEN 15 mg/dL (7-22); BUN/CREATININE RATIO 21.42 (6-20)
[2018-06-15] MEDS: ASPIRIN EC 81 MG TABLET PO SCH (08:04)
[2018-06-15] MEDS: ENOXAPARIN SODIUM 30 MG/0.3 ML SYRINGE SUBCUT SCH ×2 (08:04→19:59)
[2018-06-15] MEDS: AmLODIPine Tab 5 MG TABLET PO SCH (08:04)
[2018-06-15] MEDS: DOCUSATE 100 MG CAPSULE PO SCH ×2 (08:04→19:59)
[2018-06-15] MEDS: Multivitamin Tab 1 TAB PO SCH (08:04)
[2018-06-15] MEDS: METOPROLOL SUCCINATE 25 MG SR 24H TABLET PO SCH (08:05)
[2018-06-15] MEDS: EFFER K PO SCH (08:07)
[2018-06-15] MEDS: CITRATE PO SCH (08:07)
[2018-06-15] MEDS: POTASSIUM BICARBONATE PO SCH (08:07)
--- NOTE | 2018-06-15 08:37 | ORTHO.PROG ---
Last Taken Vital Signs: Vital Signs - Last Taken Temperature 98 F 06/15/18 05:00 Pulse Rate 73 06/15/18 05:00 Respiratory Rate 20 06/15/18 00:10 Blood Pressure 136/65 06/15/18 05:00 Pulse Ox 92 06/15/18 07:00 Subjective: Patient feels she is doing well is making good improvement, again from 40 to 75 yesterday range of motion with flexion and has fairly good extension Objective: Leg with a mild amount of swelling the negative pressure dressing is applied was no active issues are. Good motor and sensory exam in the lower extremity., No calf or thigh pain and swelling is some mild. Laboratory Results 06/15/18 06/15/18 Range/Units 04:24 04:24 WBC 7.63 (4.8-10.8) 10^3/uL RBC 3.14 L (4.20-5.40) 10^6/uL Hgb 9.7 L (12.0-16.0) g/dL Hct 28.9 L (37.0-47.0) % MCV 92.0 (81-99) FL MCH 30.9 (27-31) PG MCHC 33.6 (33-37) g/dL RDW Std Deviation 45.3 (39-50) fL RDW Coeff of Trever 13.9 (11.5-14.5) % Plt Count 145 (140-350) 10*3/uL MPV 11.6 (7.4-12.2) FL Sodium 138 (135-145) meq/L Potassium 3.3 L (3.8-5.2) meq/L Chloride 104 (98-112) meq/L Carbon Dioxide 30 (23-33) meq/L Anion Gap 4 L (5-20) BUN 15 (7-22) mg/dL Creatinine 0.7 (0.50-1.20) mg/dL Estimated GFR > 60 (>60 ml/min/1.73m(2)) BUN/Creatinine Ratio 21.42 H (6-20) Glucose 101 (78-110) mg/dL Calculated Osmolality 286.0 (267-292) mOsm/kg Calcium 8.4 L (8.7-10.7) mg/dL Vital Signs (24 hrs) Temp Pulse Resp BP Pulse Ox 06/15/18 07:00 92 06/15/18 06:58 92 06/15/18 06:55 87 06/15/18 05:00 98 F 73 136/65 92 06/15/18 00:10 97.7 F 67 20 147/70 91 06/14/18 21:00 97.3 F 71 18 157/68 06/14/18 19:00 69 18 06/14/18 16:21 97 F 69 18 139/69 92 06/14/18 12:20 96.9 F 58 L 17 120/76 95 Intake and Output - 8hrs 06/14/18 06/14/18 06/15/18 06/15/18 13:59 21:59 05:59 13:59 Intake: Intake Oral Amount 580 / 580 1000 / 1000 550 / 550 340 / 340 Breakfast 120 / 120 240 / 240 Dinner 550 / 550 Lunch 360 / 360 Output: Output, Urine Amount 550 / 550 500 / 500 Other: Percent Meal Consumed Breakfast 25% 100% Dinner 25% Lunch 75% Weight 88.088 kg 88.451 kg Weight Measurement Method Standing Scale Assessment: Right total knee replacement Postoperative anemia Plan: Continue with current plan with physical therapy and occupational therapy, continue with current plan with DVT prophylaxis with Lovenox and pneumatic sequentials. Continue with the pain medication control as needed. I will recheck her CBC in the morning since we have not seen stabilization of her hematocrit level
--- NOTE | 2018-06-15 10:59 | PDOC(PROG) ---
Interval History: Patient has no complaints doing well with physical therapy pain is controlled Objective : Data - Labs CBC and BMP: 06/15/18 04:24 06/15/18 04:24 Objective : Exam - General General Appearance: Cooperative - Respiratory Respiratory Exam: Clear to Auscultation - Bilaterally, Breathing Non Labored, Normal To Percussion, Normal to Percussion and Palpation - Cardiovascular Cardiovascular Exam: RRR, No Murmur, No Clicks, No Gallops, No Rubs, PMI Non- Displaced - Extremities Extremities Exam: No Clubbing Present, No Edema Present, No Cyanosis Present Assessment and Plan - Patient Problems (1) UTI (urinary tract infection) Current Visit: No Status: Acute Comment: Resolved last day of Microdantin Code(s): N39.0 - Urinary tract infection, site not specified Qualifiers: Urinary tract infection type: site unspecified Hematuria presence: without hematuria Qualified Code(s): N39.0 - Urinary tract infection, site not specified (2) Status post right knee replacement Current Visit: Yes Status: Acute Comment: Deferred Dr. Durham Code(s): Z96.651 - Presence of right artificial knee joint (3) Hypertension Current Visit: Yes Status: Acute Comment: Stable we have decreased the dose of her blood pressure medication including metoprolol since she was a little bradycardic Code(s): I10 - Essential (primary) hypertension (4) Postoperative anemia due to acute blood loss Current Visit: Yes Status: Acute Comment: Check CBC in a.m. hemodynamically stable Code(s): D62 - Acute posthemorrhagic anemia (5) Hypokalemia Current Visit: Yes Status: Acute Comment: Replace 40 of K Dur by mouth twice a day check magnesium level as well if this is low potassium will not go up Code(s): E87.6 - Hypokalemia
[2018-06-15] MEDS: POTASSIUM CHLORIDE 20 MEQ TAB PO SCH ×2 (11:43→19:59)
--- NOTE | 2018-06-15 12:08 | PT.PROG ---
Progress Note Progress Note: S. Patient stated that she is feeling better however continues to have pain. O. Patient ambulated 20 feet to the wheelchair and was wheeled to the therapy gym where she had heat and performed heel slides, quad sets, ankle pumps, short arc quads all x 10, sit to stands x 5. Patient then ambulated 70 feet to the wheelchair and was returned to her room where she was left with alarm and call light. A. Patient tolerated therapy fair, she continues to struggle with supine knee flexion, however is able to achieve 80 degrees of flexion when seated, she achieved approximately 9 degreed of extension. She would continue to benefit from skilled therapy to increase strength and mobility possibly 2-3 more treatments. P. Continue POC.
[2018-06-15] MEDS: HYDROmorphone 2 MG/1 ML IVP PRN (13:19)
--- NOTE | 2018-06-15 16:44 | PT.PROG ---
Progress Note Progress Note: S. Patient stated that she is feeling better this afternoon. O. Patient ambulated 70 feet to the wheelchair and was wheeled to the therapy gym where she had heat and micro massage to decrease pain and edema. Patient then performed heel slides, quad sets, ankle pumps, short arc quads, seated knee flexion, and sit to stands all x 10 then performed box step ups x 5 with a #2 box. Patient then ambulated 175 feet back to her room. where she was left with alarm and call light. A. Patient tolerated therapy well this afternoon, she was able to perform all exercises with no increase of pain noted. Patient was able to perform bed mobility independently with gait belt assist. Patient would continue to benefit from skilled therapy to increase strength and mobility. Patient would benefit from 1-2 more treatments. P. Continue POC.
[2018-06-16] MEDS: HYDROcodone-APAP 7.5 MG-325 MG TABLET PO PRN ×3 (02:36→11:27)
[2018-06-16 04:59] LABS: Hematocrit [HCT] 28.7 % (37.0-47.0); Hemoglobin [HGB] 9.5 g/dL (12.0-16.0); MEAN CORPUSCULAR HEMOGLOBIN 30.2 PG (27-31); MEAN CORPUSCULAR HGB CONC 33.1 g/dL (33-37); MEAN CORPUSCULAR VOLUME 91.1 FL (81-99); MEAN PLATELET VOLUME 11.4 FL (7.4-12.2); RED BLOOD COUNT 3.15 10^6/uL (4.20-5.40)
[2018-06-16 08:52] LABS: BLOOD UREA NITROGEN 12 mg/dL (7-22)
[2018-06-16] MEDS: DOCUSATE 100 MG CAPSULE PO SCH (10:03)
[2018-06-16] MEDS: METOPROLOL SUCCINATE 25 MG SR 24H TABLET PO SCH (10:03)
[2018-06-16] MEDS: ASPIRIN EC 81 MG TABLET PO SCH (10:03)
[2018-06-16] MEDS: POTASSIUM CHLORIDE 20 MEQ TAB PO SCH (10:03)
[2018-06-16] MEDS: Multivitamin Tab 1 TAB PO SCH (10:03)
[2018-06-16] MEDS: AmLODIPine Tab 5 MG TABLET PO SCH (10:03)
[2018-06-16] MEDS: ENOXAPARIN SODIUM 30 MG/0.3 ML SYRINGE SUBCUT SCH (10:04)
--- NOTE | 2018-06-16 10:40 | PT.PROG ---
Progress Note Progress Note: S: pt reports she is doing well pain is much better today. O: nsg okay'd prior to therapy. pt transferred down to therapy gym all CGA x 1 with walker. MHP x 20 mins , KT for edema, Patient then performed heel slides, quad sets, ankle pumps, short arc quads, seated knee flexion, and sit to stands all x 10. instructed on stairs and use of daughter at home. gentle manual therapy into flexion and ext of her knee. Patient then ambulated 175 feet back to her room. where she was left with alarm and call light. A. Patient tolerated therapy well, she was able to perform all exercises with no increase of pain noted. edema noted. P: recommend outpatient PT. recommend daughters help to get into home.
--- NOTE | 2018-06-16 10:50 | DCSUMMARY ---
Hospitalization Summary Hospital Course: Final Discharge Diagnosis: Current Visit Problems Problem Status Onset Code Status post right knee replacement Acute Z96.651 Hypertension Acute I10 Postoperative anemia due to acute blood loss Acute D62 Hypokalemia Acute E87.6 Diagnostic Data, Laboratory Data, and Procedures of Signifigance: Laboratory Results 06/15/18 06/16/18 06/16/18 Range/Units 04:24 04:18 08:30 WBC 6.42 (4.8-10.8) 10^3/uL RBC 3.15 L (4.20-5.40) 10^6/uL Hgb 9.5 L (12.0-16.0) g/dL Hct 28.7 L (37.0-47.0) % MCV 91.1 (81-99) FL MCH 30.2 (27-31) PG MCHC 33.1 (33-37) g/dL RDW Std Deviation 44.4 (39-50) fL RDW Coeff of Trever 13.8 (11.5-14.5) % Plt Count 178 (140-350) 10*3/uL MPV 11.4 (7.4-12.2) FL Sodium 138 (135-145) meq/L Potassium 3.9 (3.8-5.2) meq/L Chloride 103 (98-112) meq/L Carbon Dioxide 29 (23-33) meq/L Anion Gap 6 (5-20) BUN 12 (7-22) mg/dL Creatinine 0.6 (0.50-1.20) mg/dL Estimated GFR > 60 (>60 ml/min/1.73m(2)) BUN/Creatinine Ratio 20.00 (6-20) Glucose 161 H (78-110) mg/dL Calculated Osmolality 288.0 (267-292) mOsm/kg Calcium 8.4 L (8.7-10.7) mg/dL Magnesium 1.7 (1.6-2.4) mg/dL History and Physical pertinent to Admission: Course of Hospitalization: Is a very nice 68-year-old female who underwent right total knee replacement by Dr. Durham hospitalist service was consulted for hypertension also patient at high hypokalemia this was replaced with normalization of her potassium today her blood pressure was on the low side than the her JUAN JOSE inhibitor was held as well as hydrochlorothiazide triamterene as well as her beta cyndy which was cut in half her new medication for home will be Norvasc 10 mg which I called a prescription in and also discussed with the patient and nurse and the beta cyndy will be cut to 12.5 mg she understands this very well she is complaining of no pain and physical therapy has released her anticoagulation and pain medication will be written by Dr. Durham and all other instructions for repeat outpatient PT as well On the date of discharge, the patient was examined: Gen.: No acute distress, alert, nontoxic Heart: Regular rate and rhythm, no murmurs, clicks, gallops, or rubs Lungs: Clear to auscultation bilaterally, breathing is nonlabored Abdomen/GI: Normal tones on auscultation, soft, nontender, nondistended Musculoskeletal/extremities: No clubbing, cyanosis, or edema Vitals reviewed and are listed below Current Visit Problems Problem Status Onset Code Status post right knee replacement Acute Z96.651 Hypertension Acute I10 Postoperative anemia due to acute blood loss Acute D62 Hypokalemia Acute E87.6 Vital Signs (24 hrs) Temp Pulse Resp BP BP Pulse Ox 06/16/18 07:16 97.2 F 85 20 153/74 93 06/16/18 04:52 98 F 71 20 130/73 90 06/16/18 00:45 97.8 F 86 16 147/74 92 06/15/18 21:00 97.3 F 85 16 149/77 92 06/15/18 19:00 70 06/15/18 18:44 16 06/15/18 16:19 97.0 F 70 16 149/89 91 06/15/18 12:53 97.0 F 78 16 135/71 90 Assessment and Plan: 1. As per discharge assessments above 2. Disposition: Home 3. Condition on discharge, stable and improved. 4. Diet: regular diet 5. Activities: resume normal activities 6. Follow-Up: 1. PCP 2. 7. Medications at the Time of Discharge: Home Medications 3 Medication Instructions Recorded Confirmed Type Lo-Dose Aspirin Ec 81 mg ORAL QD tab 12/16/11 06/12/18 History Potassium Bicarbonate/Cit AC 1 tab PO QD tab 12/28/15 06/12/18 History [Potassium 25 Meq Tablet Eff] [id number]-[id number] 1 tab PO DAILY 11/10/17 06/12/18 History tablet Amlodipine Besylate [Norvasc] 10 mg PO DAILY #30 tab 06/16/18 Rx Metoprolol Succinate [Toprol XL] 12.5 mg PO DAILY tab 06/16/18 Rx 8. Time, care, counseling and coordination of care for this discharge is greater than 30 minutes. Exam - Vitals Vital Signs: Vital Signs Temperature 97.2 F Temperature Source Temporal Artery Scan Pulse Rate [Pulse Oximeter] 85 Pulse Rate [Right Dorsalis 51 Pedis] Pulse Rate 44 Respiratory Rate 20 Blood Pressure [Left Arm] 153/74 Blood Pressure [Right Arm] 135/71 Blood Pressure 121/68 Pulse Ox 93 Oxygen Flow Rate 1 Oxygen Delivery Method Room Air Height 5 ft 4 in Weight 194 lb 14.4 oz Patient Problems - Patient Problem List (1) UTI (urinary tract infection) Current Visit: No Status: Acute Code(s): N39.0 - Urinary tract infection, site not specified Qualifiers: Urinary tract infection type: site unspecified Hematuria presence: without hematuria Qualified Code(s): N39.0 - Urinary tract infection, site not specified Category: Medical (2) Status post right knee replacement Current Visit: Yes Status: Acute Code(s): Z96.651 - Presence of right artificial knee joint Category: Medical (3) Hypertension Current Visit: Yes Status: Acute Code(s): I10 - Essential (primary) hypertension Category: Medical (4) Postoperative anemia due to acute blood loss Current Visit: Yes Status: Acute Code(s): D62 - Acute posthemorrhagic anemia Category: Medical (5) Hypokalemia Current Visit: Yes Status: Acute Code(s): E87.6 - Hypokalemia Category: Medical
--- NOTE | 2018-06-16 11:12 | ORTHO.PROG ---
Last Taken Vital Signs: Vital Signs - Last Taken Temperature 97.2 F 06/16/18 07:16 Pulse Rate 85 06/16/18 07:16 Respiratory Rate 20 06/16/18 07:16 Blood Pressure 153/74 06/16/18 07:16 Pulse Ox 93 06/16/18 07:16 Subjective: Patient doing well pain well controlled Objective: The patient's negative pressure dressing in place no active issues patient was some small blister formation around the negative pressure dressing have not significantly changed in size and anyone no evidence of infection motor and sensory exam nonfocal she can get full extension and flex to about 80. Laboratory Results 06/15/18 06/16/18 06/16/18 Range/Units 04:24 04:18 08:30 WBC 6.42 (4.8-10.8) 10^3/uL RBC 3.15 L (4.20-5.40) 10^6/uL Hgb 9.5 L (12.0-16.0) g/dL Hct 28.7 L (37.0-47.0) % MCV 91.1 (81-99) FL MCH 30.2 (27-31) PG MCHC 33.1 (33-37) g/dL RDW Std Deviation 44.4 (39-50) fL RDW Coeff of Trever 13.8 (11.5-14.5) % Plt Count 178 (140-350) 10*3/uL MPV 11.4 (7.4-12.2) FL Sodium 138 (135-145) meq/L Potassium 3.9 (3.8-5.2) meq/L Chloride 103 (98-112) meq/L Carbon Dioxide 29 (23-33) meq/L Anion Gap 6 (5-20) BUN 12 (7-22) mg/dL Creatinine 0.6 (0.50-1.20) mg/dL Estimated GFR > 60 (>60 ml/min/1.73m(2)) BUN/Creatinine Ratio 20.00 (6-20) Glucose 161 H (78-110) mg/dL Calculated Osmolality 288.0 (267-292) mOsm/kg Calcium 8.4 L (8.7-10.7) mg/dL Magnesium 1.7 (1.6-2.4) mg/dL Vital Signs (24 hrs) Temp Pulse Resp BP BP Pulse Ox 06/16/18 07:16 97.2 F 85 20 153/74 93 06/16/18 04:52 98 F 71 20 130/73 90 06/16/18 00:45 97.8 F 86 16 147/74 92 06/15/18 21:00 97.3 F 85 16 149/77 92 06/15/18 19:00 70 06/15/18 18:44 16 06/15/18 16:19 97.0 F 70 16 149/89 91 06/15/18 12:53 97.0 F 78 16 135/71 90 Assessment: Status post right total knee replacement Postoperative anemia stable Plan: Patient will continue with physical therapy and occupational therapy as an outpatient, continue prophylactic DVT with pneumatic sequentials and Xarelto. Patient will continue with pain medication orally as needed follow-up as previously scheduled in about 10 days
[2018-06-16 11:41] VITALS: BP 156/81; RESP 18; TEMP 97; O2SAT 96
[2018-06-17] MEDS ORDERED: Rivaroxaban Tab 10 MG TAB PO SCH (09:00)
== END 2018-06-16 13:21 | disposition home or self-care (01) | DRG 470 ==
LOC: OPS 06-12 06:00 → MED/SURG 06-12 12:55
PROVIDERS: ADMIT Orthopaedic Surgery; ATTEND Orthopaedic Surgery